=== PATIENT | male | born 1955 | race Caucasian/White ===

== ENCOUNTER → 2017-07-21 | Outpatient (CLI) | payer MEDICARE, MEDICAID ==
[~2017-07-21] MED LIST: ADVAIR 250/5028 PUFF IN; ASPIRIN CHILDRE81 M1 PO; BREO ELLIPTA 21 EACH IH; BUPROPION HCL100 MG PO; CETIRIZINE HYDR10 MG PO; DULERA1 AR1 INH; FAMOTIDINE 20MG20 MG PO; FLONASE 50 MCG16 GM; HYDROCODONE1 TABLET PO; KEFLEX 500MG.500 MG PO; LIPITOR10 MG PO; LIPITOR20 MG PO; LOPRESSOR 25MG.25 MG PO; MECLIZINE25 MG PO; MELOXICAM15 MG PO; MOTRIN800 MG PO; NAPROSYN500 M1 PO; NEBULIZER; NEURONTIN 300M300 MG PO; NITROGLYCERIN0.4 M1 SL; OMEPRAZOLE20 MG PO; PEPCID 20MG TAB20 MG PO; PREDNISONE 20MG20 MG PO; PRILOSEC20 MG PO; REGLAN 10 MG TA10 MG; TESSALON PERLE200 MG PO; ZANTAC 150150 MG PO; ZITHROMAX Z PA250 MG PO; ZOFRAN ODT4 MG PO; [UNRECOGNIZED DRUG - REMARK] PO
--- NOTE | 2017-07-21 17:01 | RADIOLOGY REPORT PS360 ---
PROCEDURE: 2-D M-mode and color Doppler study INDICATIONS FOR THE TEST: Chest pain COPDX Heart Murmur Tobacco SmokingEX Palpitations Fatigue Syncope Edema HypertensionXDiabetes Mellitus Rheumatic Fever SOBXDOE Obesity Hyperlipidemia Family History HD Additional History PRE OP EVAL PATIENT INFORMATION HEIGHT: 66 WEIGHT:129 GENDER: Male B/P:110/60 2-D/M-MODE INTERPRETATION: 2-D MEASUREMENTS OBSERVED VALUES IN CMS Right Ventricular Dimension (RVDd) 1.8 Interventricular Septum (Thickness)(IVsd) .8 Left Ventricular Internal Dimensions(LVIDd) 5.0 Left Ventricular Posterior Wall (Thickness)(LVPWd) .7 Aortic Root 3.0 Aortic Cusp Separation Left Atrial Dimensions (LAD) 2.6 2D 1. Left atrium is qualitatively mildly enlarged, left ventricle is normal size, there is no concentric left ventricular hypertrophy, visually estimated ejection fraction 50% with no obvious regional wall motion abnormality. 2. The right atrium and right ventricle are normal size and contractility. 3. The aortic valve is minimally thickened and fibrosed. 4. The mitral and tricuspid valve leaflets are minimally thickened. 5. No significant pericardial effusion noted 6. The pulmonic valve is poorly visualized. DOPPLER INTERROGATION: Doppler interrogation of the aortic, mitral and tricuspid valvular presence of mild mitral and tricuspid regurgitation, tricuspid and jet velocity is insufficient for calculation of the right ventricular systolic pressure, grade 1 diastolic dysfunction seen without tissue Doppler evidence of raised left atrial pressure. CONCLUSION: 1. Mildly enlarged left atrium, normal left ventricular size, visually estimated ejection fraction 50% with no obvious regional wall motion abnormality, grade 1 diastolic dysfunction seen without tissue Doppler evidence of raised left atrial pressure. 2. Mild mitral and tricuspid regurgitation. 3. No significant pericardial effusion noted.
== END ==
LOC: RT 07-15 13:00
DX: I25.10 Atherosclerotic heart disease of native coronary artery without angina pectoris (principal); I10 Essential (primary) hypertension; J44.9 Chronic obstructive pulmonary disease, unspecified; Z01.818 Encounter for other preprocedural examination

== ENCOUNTER → 2017-08-22 | Outpatient (CLI) | payer MEDICARE, MEDICAID ==
[2017-08-22 11:09] LABS: HEMOGLOBIN 15.7 g/dL (14.1-18.0); LYMPH # 2.6 K/mm3 (0.7-4.5); LYMPH % 23.5 % (10-50)
[2017-08-22 13:08] LABS: BUN 12 mg/dL (7-18)
[2017-08-22 13:21] LABS: GFR (ESTIMATED) 114 ML/MIN (>60)
== END ==
LOC: LAB 10:05
PROVIDERS: Surgery
DX: K40.90 Unilateral inguinal hernia, without obstruction or gangrene, not specified as recurrent (principal); Z01.818 Encounter for other preprocedural examination

== ENCOUNTER 2017-08-31 06:08 | Day surgery (SDC) | payer MEDICARE, MEDICAID ==
[~2017-08-31] VITALS: Ht 167.6 cm; Wt 58.5 kg
--- NOTE | 2017-08-31 08:35 | Anesthesia Record ---
Anesthesia Record Part II Discharge time: 0900 Destination: Same day surgery PACU nurse assessment review? Yes Patient is: Awake, Stable Anesthesia complications? No at 0835
--- NOTE | 2017-08-31 08:35 | Anesthesia Record ---
Anesthesia Record Part I Total IV fluids: 1200 EBL (ml): 0 Urine Output: 0 B/P: 147/80 % SaO2: 99 Pulse: 70 Resps: 12 Temp: 98.5 Patient is: Awake, Stable Stable to PACU at: 0830 at 0834
--- NOTE | 2017-08-31 08:39 | Operative Note ---
Surgeon/Diagnoses Surgeon/Welding Machine Operator/Tender(s) Date of procedure: 08/31/17 Surgeon: Bertram Banks Diagnoses Pre-op diagnosis: RIGHT inguinal hernia Post-op diagnosis Same Procedure Procedure Procedure: Open running wall hernia repair with mesh placement Indications: LEENA NGUYEN is a 62 year-old Male with a history of RIGHT hernia. He is a 62-year-old white male originally referred from Dr. Julio Schultz for RIGHT inguinal hernia. Patient is quite a poor historian. 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 He underwent prior LEFT inguinal hernia repair by Dr. García in 2003. For several months he has had a swelling knot in the RIGHT groin area. He states that it is the size of a golf ball. It is tender to him. He describes ongoing pain stating that it may have increased in size and it hurts particularly when he is walking. After some prolonged ordeals I obtained the records from cardiology who deems him an acceptable risk for hernia surgery. I finally obtained a disposition from Dr. Sierra and he deems him an acceptable risk to undergo hernia repair. Patient has been anxious to proceed due to the discomfort. It was explained to the patient that his small hernia which was symptomatic to him would likely be more uncomfortable in the initial postoperative period. He understood and was anxious to proceed. Plan was made for open repair. Findings: He had a small indirect hernia. Procedure Description: Consent was obtained and patient was taken to the operating room. He was positioned in a supine position. Gen. anesthesia was induced via endotracheal tube. Abdomen and perineum were prepped and draped in the standard surgical fashion. Oblique incision was made in the RIGHT inguinal area superior to landmarks identifying the inguinal ligament. Dissection was carried down through subcu tissues and Suypaa's fascia exposing the external oblique muscle. External oblique was opened along the length of its fibers. The ilioinguinal nerve was protected and preserved. Cord structures were dissected free from the floor of the inguinal canal and encircled with a Grace drain. He did have evidence of direct hernia potential due to essentially lack of inguinal floor integrity. Dissection was carried out of the cord and there was a small indirect hernia noted as a hernia sac. Hernia sac was dissected free from the cord. He was able to be reduced without excision. An was made for repair with onlay mesh without plug. Mesh was brought onto the field. It was secured to Lane's ligament and along the shelving edge of the inguinal ligament with a running 2-0 PDS suture. It was secured superior medially to the transversalis fascia with interrupted 2- 0 PDS sutures. The 2 "leaves" of the mesh were used to encircle the cord structures and sutured one another with several interrupted 2-0 PDS sutures to reconstruct the internal ring. Cord structures and inguinal nerve return to the normal anatomic position. The external oblique muscle was closed over the cord with running 2-0 Vicryl. Suyapa's fascia was closed with running 3-0 Vicryl. Skin was closed with running 4-0 Monocryl in a subcu fashion. Clean dry sterile dressing was applied. Local anesthetic was infiltrated for inguinal nerve block at the completion of the procedure. EBL (ml): 10 Anesthesia: GETA Implants: Bard Prefix Mesh without plug Specimens: None Disposition Disposition: To PACU at 0838
[2017-08-31 20:48] VITALS: BP 116/72
== END 2017-08-31 09:50 | disposition home or self-care (01) ==
LOC: SDC 06:08
PROVIDERS: Surgery
PROC: 0YU50JZ Supplement Right Inguinal Region with Synthetic Substitute, Open Approach (ICD-10-PCS; principal; 2017-08-31 07:30)
DX: K40.90 Unilateral inguinal hernia, without obstruction or gangrene, not specified as recurrent (principal); M19.90 Unspecified osteoarthritis, unspecified site; E78.00 Pure hypercholesterolemia, unspecified; J44.9 Chronic obstructive pulmonary disease, unspecified; Z87.891 Personal history of nicotine dependence; Z79.1 Long term (current) use of non-steroidal anti-inflammatories (NSAID); Z79.82 Long term (current) use of aspirin; Z79.51 Long term (current) use of inhaled steroids
CPT/HCPCS: J2405